=== PATIENT | female | born 1985 | race African-American/Black ===

== ENCOUNTER 2024-04-06 13:12 | Outpatient (CLI) | payer BC, SELFPAY ==
[2024-04-08 11:38] LABS: NIL 0.01 IU/mL; Quantiferon TB Plus, 1T NEGATIVE (NEGATIVE)
== END 2024-04-06 13:13 | disposition home or self-care (01) ==
LOC: ANHGOSHLAB 13:14
PROVIDERS: PCP Emergency Medicine; Visit Provider Family Medicine
DX: Z71.84 Encounter for health counseling related to travel (principal)
CPT/HCPCS: 36415; 86480